=== PATIENT | female | born 1945 | race Caucasian/White ===

== ENCOUNTER 2020-04-26 17:07 | Outpatient (RCR) | payer MEDICARE, SELFPAY ==
[2020-04-26] MEDS: COVID-19 VACC, MRNA(PFIZER)/PF 30 MCG/0.3 ML SYRINGE IM (18:05)
[2020-05-17] MEDS: COVID-19 VACC, MRNA(PFIZER)/PF 30 MCG/0.3 ML SYRINGE IM (17:14)
== END 2020-04-26 23:59 ==
LOC: IMMUN 17:07
PROVIDERS: PCP Family Medicine; Referring Provider Family Medicine; Visit Provider Family Medicine
DX: Z23 Encounter for immunization (principal)
CPT/HCPCS: 0001A; 0002A; 91300